=== PATIENT | female | born 1950 | race Caucasian/White ===

== ENCOUNTER 2016-11-15 23:33 | Observation (INO) | payer MEDICARE, OTHER ==
--- NOTE | ~2016-11-15 | HP ---
History And Physical [address] [id number] [place]. [address] NAME: HOSEA ESTRADA : 46 STATUS : ADM Gisell PAT#: [id number] AGE: 66 ADM/REG DATE : 11/15/16 MR#: [id number] REPORT SERV DATE: 11/16/16 DICTATED BY: MARCO ANTONIO DAVIS DATE: 11/16/16 REPORT STATUS : Draft TRANSCRIBED BY: MODSravan DATE: 11/16/16 DATE OF ADMISSION: 11/15/2016 CHIEF COMPLAINT: Chest tightness and back pain. HISTORY OF PRESENT ILLNESS: A very pleasant 66-year-old white female with no known history of CAD, who underwent a cardiac catheterization for false-positive stress echo, 2010. Her arteriogram performed by Dr. Wang revealed no evidence of significant CAD with an EF of 60% at that time. The patient states that yesterday after waking up and sitting with her and drinking some coffee around 10:00, she experienced some left-sided chest pain described as a tightness that radiated towards her back. She states that the discomfort was also under her left breast. She reports associated shortness of breath, nausea, diaphoresis, dizziness, and belching. At its most intense, she rated the chest pain at an 8 out of 10. At time of interview in the [facility], she is pain-free. She states her symptoms were improved with a total of 3 nitroglycerin sublingual. She states it lasted several hours in duration. There is no exertional component expressed. No argument or confrontational event reported. The patient denies any personal history of myocardial infarction, strokes, DVT, or pulmonary embolus. Of note, the patient recently underwent a crown implant 3 weeks ago, felt as though she might have had a reaction to the crown, it was removed by her dentist, and she now has a temporary in place. She also was diagnosed with a UTI approximately three weeks ago as well. She has been through a course of Bactrim. Unfortunately, she had thrush. She was seen at [facility] and treated for her thrush and switch to Macrobid. She is now on Levaquin for a persistent UTI followed by her PCP. The patient is being treated for recurrent UTI. Denies palpitations or syncopal episodes. Denies PND or orthopnea. The patient does describe some vague spells of "fidgeting and restlessness," although she denies palpitations or syncopal events. PAST MEDICAL HISTORY: 1. Hypertension. 2. Dyslipidemia. 3. Recurrent UTI, treated with Levaquin. 4. Former tobacco abuse. 5. Positive family history for early CAD. PAST SURGICAL HISTORY: 1. Hiatal hernia repair. 2. Left axillary mass (benign). 3. Tubal ligation. 4. Tonsils and adenoids. 5. Hysterectomy with incidental appendectomy. SOCIAL HISTORY: She is with two children. 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 Does not have a structured exercise routine, although her and she maintain a one-acre [place] History And Physical [address] [address] NAME: HOSEA ESTRADA : 46 STATUS : ADM Gisell PAT#: [id number] AGE: 66 ADM/REG DATE : 11/15/16 MR#: [id number] REPORT SERV DATE: 11/16/16 DICTATED BY: MARCO ANTONIO DAVIS DATE: 11/16/16 REPORT STATUS : Draft TRANSCRIBED BY: YANA DATE: 11/16/16 and do yard work routinely without incident. She quit smoking in 1998. Prior to that was an on and off smoker for approximately 30 years. Denies alcohol or illicits. FAMILY HISTORY: Father at 48 of a heart attack. Brother with a heart attack in his 50s, remains alive at 73. Sister with a heart attack at an unknown age, remains alive at 80. REVIEW OF SYSTEMS: A 14-point review of systems performed, significant for HPI including snores per report with no formal sleep study and home systolic blood pressure reported of 120 to 130. Otherwise, complete review of systems obtained and negative. ALLERGIES: ALLERGY TO LISINOPRIL, COUGH. MEDICATIONS: Home medicines, artificial tears p.r.n., aspirin 81 mg daily, Levaquin 750 daily for 5 days, losartan 50 mg daily, multivitamin daily, and simvastatin 40 mg daily. PHYSICAL EXAMINATION: BLOOD PRESSURE: 164/80. PULSE: 81. RESPIRATORY RATE: 20. TEMPERATURE: 97.9. O2 saturation 100% on room air. HEIGHT: 5 feet 4 inches. WEIGHT: 167 pounds. BMI 28.7. GENERAL: Cooperative, in no apparent distress. HEENT: Pupils 2 mm, sclera nonicteric. Nares patent. Moist mucous membranes. No xanthelasma. NECK: Trachea midline, no thyromegaly. No JVD. No bruits. LYMPH: No cervical lymphadenopathy. No supraclavicular lymphadenopathy. RESPIRATORY: Unlabored respirations. Breath sounds clear bilaterally to posterior auscultation. No wheezes or rhonchi. CARDIOVASCULAR: Regular rate. No murmur, rub or gallop appreciated. Extremities without edema. Pulses 2+ bilaterally. ABDOMEN: Soft, nontender, nondistended, normal bowel sounds auscultated throughout. No organomegaly. SKIN: Warm, dry extremities. No pallor, or cyanosis. PSYCHIATRIC: Appropriate affect. Alert, oriented x3. LABORATORY DATA: Troponin less than 0.02 x 3. Potassium 3.8, BUN 13, creatinine 1.02, glucose 102, magnesium 2.3, WBC 5.5, hemoglobin 13.6, hematocrit 39.2, platelet count 169,000. D-dimer less than 0.27. UA, large leukocyte esterase, wbc 12, and rare bacteria. EKG: Sinus rhythm with inferior Q-waves. Echo, 06/2011: EF 63%. Stress echo, 06/2011: Anterior septal ischemia. Positive EKG changes for ischemia. Moderate-risk study leading to catheterization. Cath, 06/2011 ([facility]): No evidence of significant CAD, EF 60%. History And Physical [address] [address] NAME: HOSEA ESTRADA : 46 STATUS : ADM Gisell PAT#: [id number] AGE: 66 ADM/REG DATE : 11/15/16 MR#: [id number] REPORT SERV DATE: 11/16/16 DICTATED BY: MARCO ANTONIO DAVIS DATE: 11/16/16 REPORT STATUS : Draft TRANSCRIBED BY: MODL DATE: 11/16/16 ASSESSMENT AND PLAN: 1. Chest tightness in a patient with multiple risk factors. The patient has been observed in the CPOU overnight to rule out myocardial infarction with serial enzymes and serial EKGs and held n.p.o. We will proceed with MPI today. The patient will be discharged home if low risk, no ischemia. If anything suggestive of ischemia, Cardiology referral will be initiated. Otherwise, the patient will be asked to follow her PCP in one to two weeks with all studies being sent to that office. 2. Hypertension, monitor blood pressure, continue home medications. 3. Dyslipidemia, continue statin. 4. Recurrent UTI, the patient will continue Levaquin as prescribed and/or follow up with her PCP. The patient has previously been on Bactrim and Macrobid unsuccessfully. UNIQUE/YANA WAYNE Kennedy, WEIGHT COUNT OPERATOR-BC / [id number] CC: WAYNE Kennedy, WEIGHT COUNT OPERATOR-BC Genesis Medina MD
[2016-11-15 22:21] LABS: BASOPHILS 0.4 %; BASOPHILS ABSOLUTE 0.02 10/3/uL (0.0-0.16); EOSINOPHILS 0.5 %; EOSINOPHILS ABSOLUTE 0.03 10/3/uL (0.0-0.53); HEMATOCRIT 39.2 % (36.0-48.0); HEMOGLOBIN 13.6 g/dL (12.0-16.0); IMMATURE GRANULOCYTES 0.2 %; IMMATURE GRANULOCYTES ABSOLUTE 0.01 10/3/uL (0.0-0.11); LYMPHOCYTES 27.8 %; LYMPHOCYTES ABSOLUTE 1.52 10/3/uL (0.67-4.30); MEAN CORPUS HGB CONC 34.7 g/dL (32.0-36.0); MEAN CORPUSCULAR HEMOGLOB 31.1 pg (26.0-34.0); MEAN CORPUSCULAR VOLUME 89.5 fL (80-100); MEAN PLATELET VOLUME 11.4 fL (9.2-13.0); MONOCYTES ABSOLUTE 0.38 10/3/uL (0.21-1.20); NEUTROPHILS 64.1 %; PLATELET COUNT 169 10/3/uL (150-400); RBC DISTRIBUTION WIDTH 12.7 % (12.0-16.0); RED CELL COUNT 4.38 10/6/uL (4.0-5.6); WHITE BLOOD CELLS 5.5 10/3/uL (4.5-10.5)
[2016-11-15 22:24] LABS: MANUAL DIFF NO %
[2016-11-15 22:28] LABS: INTERNATIONAL NORMAL RATI 1.1 UNITS (-); PROTIME (NOT ORD) 13.7 SEC (12.0-14.5)
[2016-11-15 22:33] LABS: PARTIAL THROMBO TIME 28.3 SEC (22.5-37.2)
[2016-11-15 22:37] LABS: BUN (BLOOD UREA NITROGEN) 13 MG/DL (6-23); CALCIUM, SERUM 9.1 MG/DL (8.5-10.4); CHEST PAIN PROFILE TAT 0 Hrs 20 Mins; CHLORIDE, SERUM 107 MMOL/L (96-112); CREATININE 1.02 MG/DL (0.55-1.02); GFR AFRICAN AMERICAN 65 ML/MIN (>=60); GFR NON AFRICAN AMERICAN 56 ML/MIN (>=60); POTASSIUM, SERUM 3.8 MMOL/L (3.5-5.3); SODIUM, SERUM 140 MMOL/L (135-148); TROPONIN I <0.02 NG/ML (<0.05)
[2016-11-15 22:38] LABS: CO2 (CARBON DIOXIDE) 22 MMOL/L (24-34); GLUCOSE, SERUM 102 MG/DL (60-99)
[~2016-11-15 23:33] MED LIST: AMIT25 PO; ASAB PO; ATEN50 PO; CITRACAL PO; FOSAMAX70 MG PO; HYDROCHLOROT12.5 MG PO; HYZAAR 50/12.51 TAB PO; JANTOVEN2.5 MG PO; JANTOVEN5 MG PO; KDUR10 PO; L80 PO; LAN25 PO; MULTIPLE VIT PO; NIACIN TR1000 MG PO; NORV5 PO; PERCOCET1 TA2 PO; PRIN20 PO; PROVHFA INH; RESTORIL30 MG PO; SPIRO25 PO; VENTOLIN HFA INH; VITD PO; Z300 PO; ZOCOR40 PO
[2016-11-16 00:54] LABS: ALBUMIN 4.3 G/DL (3.5-5.0); ALKALINE PHOSPHATASE 53 U/L (45-117); DIRECT BILIRUBIN < 0.1 MG/DL (0.0-0.4); INDIRECT BILIRUBIN(NOT ORDER) 0.3 MG/DL (0.1-0.9); SGOT(AST) 16 U/L (5-40); SGPT(ALT) 24 U/L (5-65); TOTAL BILIRUBIN 0.4 MG/DL (0-1.2); TOTAL PROTEIN 7.5 G/DL (6.0-8.5)
[2016-11-16 00:55] LABS: D-DIMER QUANTITATIVE < 0.27 ug/mLFEU (< 0.50)
[2016-11-16 01:08] LABS: ASCORBIC ACID (UR NOT ORDER) NEG (NEG); BILIRUBIN, URINE NEGATIVE (NEG); ER URINALYSIS TAT 0 Hrs 25 Mins; KETONE, URINE 20 MG/DL (NEG); LEUKOCYTE ESTERASE(NOT OR LARGE (NEG); NITRITE (URINE) NEG (NEG); WBC (NOT ORDERED) (RFLEX) 12 (0-5)
[2016-11-16 01:30] LABS: LACTATE 0.8 MMOL/L (0.3-2.4)
[2016-11-16] MEDS ORDERED: LEVAQUIN750 MG PO (02:28)
[2016-11-16] MEDS ORDERED: TEARS PURE OPH (02:30)
[2016-11-16] MEDS ORDERED: MACROBID PO (02:30)
[2016-11-16] MEDS ORDERED: ASAB PO (02:30)
[2016-11-16] MEDS ORDERED: COZ50 PO (02:31)
[2016-11-16] MEDS ORDERED: ZOCOR40 PO (02:31)
[2016-11-16] MEDS ORDERED: MULTIVIT/MIN PO (02:31)
[2016-11-16] MEDS ORDERED: COZ25 PO (02:32)
[2016-11-16 06:17] LABS: TROPONIN I <0.02 NG/ML (<0.05)
== END 2016-11-16 13:13 | disposition home or self-care (01) ==
LOC: ER 23:33 → CDU1 23:59
PROVIDERS: Clinical Nurse Specialist; Hospitalist; Specialist
DX: R07.2 Precordial pain (principal); I10 Essential (primary) hypertension; E78.5 Hyperlipidemia, unspecified; N39.0 Urinary tract infection, site not specified; Z79.2 Long term (current) use of antibiotics; Z87.891 Personal history of nicotine dependence; Z82.49 Family history of ischemic heart disease and other diseases of the circulatory system; Z98.51 Tubal ligation status; Z90.89 Acquired absence of other organs; Z90.710 Acquired absence of both cervix and uterus; Z90.49 Acquired absence of other specified parts of digestive tract; Z98.890 Other specified postprocedural states; Z88.8 Allergy status to other drugs, medicaments and biological substances; Z79.899 Other long term (current) drug therapy; Z79.82 Long term (current) use of aspirin
CPT/HCPCS: 71020; 78452; 80048; 80076; 81001; 83605; 83735; 84443; 84484; 85025; 85379; 85610; 85730; 87086; 93005; 93017; 96374; 96376; 99285; A9270-GY; A9502; G0378; J2405